=== PATIENT | female | born 1965 | race Caucasian/White ===

== ENCOUNTER → 2016-07-16 | Day surgery (SDC) | payer MEDICAID ==
[~2016-07-16] VITALS: Ht 162.6 cm; Wt 99.8 kg
[~2016-07-16] MED LIST: HYDROXYZINE; NEURONTIN; PREDNISO; PROMETHAZINE
[2016-07-16 11:24] LABS: GLUCOSE CSF 67 mg/dL (41-75)
[2016-07-16 11:56] LABS: CSF APPEARANCE CLEAR (CLEAR); CSF WHITE BLOOD CELL 3 /cu mm (0-10)
== END | disposition home or self-care (01) ==
LOC: LAB 08:57 → ANGIO 08:57 → EDSTATUS 09:13
PROVIDERS: ATTEND Psychiatry & Neurology Neurology
DX: R51 Headache (principal)
CPT/HCPCS: 62270; 77003; 82945; 84157; 89050

== ENCOUNTER 2017-09-21 09:16 | Day surgery (SDC) | payer MEDICAID ==
[~2017-09-21] VITALS: Ht 162.6 cm; Wt 98.9 kg
[2017-09-21 12:49] LABS: GLUCOSE CSF 68 mg/dL (41-75)
== END 2017-09-21 15:20 | disposition home or self-care (01) ==
LOC: RAD 09:16
PROVIDERS: ATTEND Psychiatry & Neurology Neurology
DX: R51 Headache (principal); I10 Essential (primary) hypertension; M06.9 Rheumatoid arthritis, unspecified; G51.0 Bell's palsy; D86.9 Sarcoidosis, unspecified; Z79.899 Other long term (current) drug therapy; Z98.890 Other specified postprocedural states
CPT/HCPCS: 62270; 77003; 82945; 84157; 87070; 87205; 89050

== ENCOUNTER 2018-11-21 10:12 | Day surgery (SDC) | payer MEDICAID ==
[~2018-11-21] VITALS: Ht 162.6 cm; Wt 99.8 kg
[~2018-11-21 10:12] MED LIST changes: -NEURONTIN; -PREDNISO
[2018-11-21] MEDS ORDERED: LORA10TA7 MT (13:45)
[2018-11-21] MEDS ORDERED: FLUT1BLS11 IH (13:45)
[2018-11-21] MEDS ORDERED: DULO20CA18 MT (13:45)
[2018-11-21] MEDS ORDERED: METH4TAB17 PO (13:47)
[2018-11-21] MEDS ORDERED: GABA-531 MT (13:47)
[2018-11-21] MEDS ORDERED: FAMO40TA7 MT (13:47)
[2018-11-21] MEDS ORDERED: METF-414 MT (14:10)
[2018-11-21] MEDS ORDERED: NATE120T MT (14:11)
[2018-11-21 14:18] LABS: HEMATOCRIT 42.5 % (36.0-48.0); HEMOGLOBIN 14.4 g/dL (12.0-16.0); MEAN CORPUSCULAR HEMOGLOBIN 31.2 pg (28.0-32.0); MEAN CORPUSCULAR VOLUME 91.8 fL (81.0-99.0); PLATELET 213 x1000/uL (130-400); RED BLOOD CELL COUNT 4.63 mill/uL (4.2-5.4); RED CELL DISTRIBUTION WIDTH 13.1 % (11.6-14.6)
[2018-11-21 14:27] LABS: CHLORIDE 110 mEq/L (98-107)
[2018-11-21] MEDS ORDERED: IODIXANOL 320MG/ML 100 ML BOTTLE IV ONE (14:29)
[2018-11-21] MEDS ORDERED: MIDAZOLAM HCL 2 MG/2 ML VIAL ONE (14:29)
[2018-11-21] MEDS ORDERED: FENTANYL CITRATE/PF 50MCG/ML 2ML VIAL ONE (14:29)
[2018-11-21] MEDS ORDERED: LIDOCAINE HCL 1% 20ML VIAL (Pyxis) INJ ONE (14:30)
== END 2018-11-21 18:33 | disposition home or self-care (01) ==
LOC: CCL 10:12
PROVIDERS: ATTEND Internal Medicine Cardiovascular Disease
DX: R07.89 Other chest pain (principal); I09.9 Rheumatic heart disease, unspecified; M79.7 Fibromyalgia; M06.9 Rheumatoid arthritis, unspecified; G43.909 Migraine, unspecified, not intractable, without status migrainosus; Z87.891 Personal history of nicotine dependence; Z79.899 Other long term (current) drug therapy; Z79.84 Long term (current) use of oral hypoglycemic drugs
CPT/HCPCS: 36415; 80048; 82962; 85027; 93005; 93458; C1769; C1887; C1893; J1644; J2250; J3010; J3490; J7040; Q9967

== ENCOUNTER 2019-01-23 13:41 | Emergency (ER) | payer MEDICAID ==
[~2019-01-23] VITALS: Ht 162.6 cm; Wt 98.0 kg
[~2019-01-23 13:41] MED LIST changes: +DULO20CA18 MT; +FAMO40TA7 MT; +FLUT1BLS11 IH; +GABA-531 MT; -HYDROXYZINE; +LORA10TA7 MT; +METF-414 MT; +METH4TAB17 PO; +NATE120T MT; -PROMETHAZINE
[2019-01-23 14:16] VITALS: BP 127/80
[2019-01-23] MEDS ORDERED: DIPHENHYDRAMINE 50MG/ML VIAL IV ONE (16:30)
[2019-01-23] MEDS ORDERED: METOCLOPRAMIDE HCL 10MG/2ML VIAL IV ONE (16:30)
[2019-01-23] MEDS ORDERED: SODIUM CHLORIDE 0.9% 1,000 ML IV ONE (16:30)
== END 2019-01-23 16:38 | disposition left against medical advice (07) ==
LOC: ER 13:41
DX: R51 Headache (principal); Z53.21 Procedure and treatment not carried out due to patient leaving prior to being seen by health care provider
CPT/HCPCS: J7030